=== PATIENT | male | born 1930 ===

== ENCOUNTER → 2020-06-01 | Outpatient (CLI) | payer MEDICARE ==
--- NOTE | 2020-06-01 13:05 | US ---
EXAMINATION TYPE: US prostate transrectal DATE OF EXAM: 06/01/2020 COMPARISON: NONE CLINICAL HISTORY: R97.2 High PSA. Elevated PSA This examination was performed using the transrectal probe. EXAM MEASUREMENTS: Gland Size: 4.2 x 3.7 x 5.1cm Volume: 42.0ml Predicted PSA: 5.0 Actual PSA (if available):10.0 Enlarged heterogeneous gland Seminal vesicles symmetric and felt within normal limits. Heterogeneous enlarged prostate gland witho ut discrete nodule. IMPRESSION: As above. Actual PSA out of proportion to the predicted PSA. Consider ultrasound-guided random sampling or prostate MRI follow-up. Predicted PSA = volume x 0.12 ng/ml Calculated Volume = 0.5236 x L x W x H
== END | disposition home or self-care (01) ==
LOC: RADUSWWP 09:45
PROVIDERS: ATTEND Family Medicine
DX: N40.0 Benign prostatic hyperplasia without lower urinary tract symptoms (principal)
CPT/HCPCS: 76872

== ENCOUNTER → 2020-06-27 | Outpatient (CLI) | payer MEDICARE ==
--- NOTE | 2020-06-27 15:02 | CT ---
EXAMINATION TYPE: CT chest w con DATE OF EXAM: 06/27/2020 COMPARISON: NONE HISTORY: Chest pain and SOB x3 weeks CT DLP: 594 mGycm. Automated Exposure Control for Dose Reduction was Utilized. TECHNIQUE: CT scan of the thorax is performed following with IV Contrast, patient injected with 100 mL of Isovue 300. FINDINGS: LUNGS: Peripheral reticulation and fibrosis is noted bilaterally involving both upper and lower lungs . Some areas of honeycombing are noted. No pleural effusion or pneumothorax is identified. No suspici ous focal consolidation. Some mild prominence of the tracheobronchial tree centrally. MEDIASTINUM: There are no greater than 1 cm hilar or mediastinal lymph nodes. No cardiomegaly or pe ricardial effusion is seen. 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 Overlying ep icardial pacer wires. Mild to moderate mixed plaque in the visualized aorta. OTHER: Exaggerated thoracic kyphosis. Underlying scoliosis. 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 Post-CABG changes noted. No definitive acute pulmonary process.
== END | disposition home or self-care (01) ==
LOC: RADCTMAIN 13:08
PROVIDERS: ATTEND Family Medicine
DX: J84.10 Pulmonary fibrosis, unspecified (principal); Z95.1 Presence of aortocoronary bypass graft; R07.9 Chest pain, unspecified
CPT/HCPCS: 82565; 84520; 71260; 36415; Q9967